=== PATIENT | female | born 1950 | race Caucasian/White ===

== ENCOUNTER 2021-12-05 08:22 | Outpatient (CLI) | payer MEDICARE, SELFPAY ==
[2021-12-05 15:01] LABS: Microalbumin Creatinine Ratio 0 mg/g (0-30); Microalbumin Urine 1 mg/dL
[2021-12-05 15:05] LABS: Amphetamine Screen Urine Negative (Negative); Barbiturate Screen Urine Negative (Negative); Benzodiazepines Screen Urine Negative (Negative); Cannabinoid Screen Urine Negative (Negative); Cocaine Screen Urine Negative (Negative); Methadone Screen Urine Negative (Negative); Methamphetamines Screen Urine Negative (Negative); Opiate Screen Urine Negative (Negative); Oxycodone Screen Urine Negative (Negative); Phencyclidine Screen Urine Negative (Negative); Tricyclic Antidepressant Urine Negative (Negative)
[2021-12-05 15:50] LABS: Chloride* 103 mmol/L (96-114)
[2021-12-05 15:51] LABS: Albumin* 4.2 g/dL (3.3-5.0); Sodium* 140 mmol/L (135-149)
[2021-12-05 15:52] LABS: Potassium* 4.2 mmol/L (3.6-5.1)
[2021-12-05 15:54] LABS: Alanine Aminotransferase* 58 U/L (4-35); Alkaline Phosphatase* 116 U/L (40-150); Aspartate Amino Transferase* 50 U/L (12-35); Bilirubin Total* 0.9 mg/dL (0.1-1.5); Blood Urea Nitrogen* 15 mg/dL (7-30); Carbon Dioxide* 27 mmol/L (20-32); Cholesterol* 187 mg/dL (90-199); Creatinine* 0.8 mg/dL (0.5-1.5); Estimated Glomerular Filt Rate 78 ml/min; Glucose* 163 mg/dL (60-115); Total Protein* 6.4 g/dL (6.0-8.3); Triglycerides* 207 mg/dL (40-149)
[2021-12-05 15:55] LABS: Calcium* 8.6 mg/dL (8.4-10.6); HDL Cholesterol* 33 mg/dL (>=50); LDL Cholesterol Calculated 113 mg/dL (<100)
== END 2021-12-05 08:23 | disposition home or self-care (01) ==
PROVIDERS: PCP Family Medicine; Visit Provider Family Medicine
DX: E11.8 Type 2 diabetes mellitus with unspecified complications (principal); E78.5 Hyperlipidemia, unspecified; I10 Essential (primary) hypertension; N39.0 Urinary tract infection, site not specified; J44.9 Chronic obstructive pulmonary disease, unspecified; J96.21 Acute and chronic respiratory failure with hypoxia; K76.0 Fatty (change of) liver, not elsewhere classified; Z72.0 Tobacco use
CPT/HCPCS: 80053; 80061; 80306; 82043; 82570; 87086

== ENCOUNTER 2022-03-22 07:18 | Emergency (ER) | payer MEDICARE, SELFPAY ==
[2022-03-22] VITALS (8 sets, daily range): BP systolic 115–201; BP diastolic 67–109; PULSE 106–113; RESP 24–28; TEMP 36.7; O2SAT 91–98; BMI 33.4
--- NOTE | 2022-03-22 08:15 | ED.GENADULT ---
HPI - General Adult General Chief complaint: Shortness of Breath/Dyspnea Stated complaint: Shortness of Breath Time Seen by Provider: 03/22/22 08:05 Source: patient Limitations: no limitations History of Present Illness HPI narrative: 71-year-old female coming in today complaining of shortness of breath going on for approximately 4 days. Patient does have a history of coronary artery disease and COPD, unfortunately does continue to smoke approximately 1 and half pack of cigarettes per day. She states that about 4 days ago she became increasingly short of breath and developed a mild cough. She denies any fevers or chills. Her appetite has been poor. She denies any chest pain, nausea, dizziness or diaphoresis. She does have home oxygen which she states she only uses during this spring when her allergies are bad. She has started using her oxygen in the last 4 days 24 hours a day. She also states that she has 1 inhaler that she uses, also only during the spring, and what she describes as a DuoNeb which she only uses on as needed basis. She has been using both of these medications daily for the last few days. She denies any swelling of her extremities. She denies any sick contacts that she is aware of. States that she has been vaccinated for both influenza and COVID-19 this year. Related Data Home Medications Medication Instructions Recorded Confirmed Diabetic Test Strips 10/31/21 03/05/22 albuterol sulfate 90 mcg/actuation 2 inhalation PRN 10/31/21 03/05/22 aerosol inhaler aspirin 81 mg tablet,delayed 81 mg PO QDAY 10/31/21 03/05/22 release (Adult Aspirin Regimen) fluconazole 150 mg tablet mg PO ONCE 10/31/21 03/05/22 fluticasone propionate 250 2 inhalation BID 10/31/21 03/05/22 mcg/actuation blister powder for inhalation furosemide 20 mg tablet mg PO .Daily as needed PRN 10/31/21 03/05/22 ipratropium 0.5 mg-albuterol 3 mg 1 ml inhalation PRN 10/31/21 03/05/22 (2.5 mg base)/3 mL nebulization soln isosorbide mononitrate 60 mg 60 mg PO DAILY 10/31/21 03/05/22 tablet,extended release 24 hr loratadine 10 mg tablet 10 mg PO QDAY 10/31/21 03/05/22 lorazepam 0.5 mg tablet mg PO .Bedtime as needed PRN 10/31/21 03/05/22 metoprolol succinate 50 mg mg PO DAILY 10/31/21 03/05/22 tablet,extended release 24 hr nitroglycerin 0.4 mg sublingual 0.4 mg buccal Q5M PRN 10/31/21 03/05/22 tablet tiotropium bromide 18 mcg capsule 18 inhalation DAILY 10/31/21 03/05/22 with inhalation device triamcinolone acetonide 0.1 % 1 applic topical PRN 10/31/21 03/05/22 topical cream potassium chloride 10 mEq 20 meq PO BID 12/05/21 03/05/22 capsule,extended release Previous Rx's Medication Instructions Recorded montelukast 10 mg tablet 10 mg PO .Bedtime as needed PRN 11/16/21 astma #30 tabs ezetimibe 10 mg tablet 10 mg PO ONCE #30 tabs 12/05/21 semaglutide 0.25 mg or 0.5 mg (2 0.25 mg (0.2 mL) subcut QWEEK #1.5 12/05/21 mg/1.5 mL) subcutaneous pen mL injector (Alitalia) esomeprazole magnesium 20 mg 20 mg PO DAILY #90 caps 02/01/22 capsule,delayed release glimepiride 1 mg tablet 1 mg PO DAILY #90 tabs 02/01/22 prednisone 20 mg tablet 20 mg PO DIRECTED 9 days #18 03/22/22 tabs Allergies Allergy/AdvReac Type Severity Reaction Status Date / Time doxycycline Allergy Intermediate Diarrhea Verified 03/05/22 16:39 glipizide Allergy Intermediate Stomach Verified 03/05/22 16:39 issues fenofibrate Allergy Mild Rash Verified 03/05/22 16:39 metformin Allergy Mild GI issues Verified 03/05/22 16:39 prednisone Allergy Mild Shaking Verified 03/05/22 16:39 adhesive Allergy Unknown Nicotine Verified 03/05/22 16:39 patch-skin irritation azithromycin Allergy Unknown Verified 03/05/22 16:39 cefdinir AdvReac Intermediate Diarrhea Verified 03/05/22 16:39 rosuvastatin AdvReac Intermediate Significant Verified 03/05/22 16:39 dizziness atorvastatin AdvReac Mild Verified 03/05/22 16:39 Corticosteroids and AdvReac Mild Uncoded 03/05/22 16:39 derivatives Review of Systems Status of ROS: Reports: 10 or more systems reviewed and unremarkable except as noted in History and below PFSH PFSH Surgical History History of appendectomy (05/23/12) History of cholecystectomy (07/11/12) History of hysterectomy (05/23/12) Status post coil embolization of cerebral aneurysm Family History Sister Breast cancer Other Diabetes High blood pressure Social History Narrative: Cigarette smoker- smokes 1 ppd Smoking Status: Current every day smoker Exam Narrative: Exam Narrative: Overweight, well-developed patient. Alert and oriented x3. Answers questions appropriately. Mood and affect are appropriate. Thoughts are goal oriented and rational. No tangential or magical thinking noted. Patient cannot complete full sentences without needing to catch her breath. HEENT: Normocephalic atraumatic. Pupils are equally round reactive to light. Extraocular muscles are intact. Conjunctivae are moist without any icterus noted. Dry mucous membranes. Neck is soft. Cardiovascular: Heart is regular rate and rhythm S1 and S2 are present without any murmurs. Lungs: Decreased air movement bilaterally with bilateral wheezing. Abdomen: Soft and nontender nondistended with normal bowel sounds. Protuberant. Extremities: Bilateral lower extremities are without edema. Skin: Well perfused, warm, dry, intact. Const: Vital Signs, click to edit/add: Vital Signs - 24 hr 03/22/22 07:26 Temperature 98.1 F Pulse Rate [Left P ulse Oximeter] 113 H Respiratory Rate 28 H Blood Pressure [Ri ght Upper Arm] 115/81 Pulse Oximetry 91 Oxygen Delivery Me thod Room Air Course Course Hospital Course: IV was established. IV fluids were started. DuoNeb was given along with IV methylprednisolone. Influenza a did come positive-Tamiflu was started. DuoNeb was repeated. Patient felt better however still requiring oxygen at 3 L nasal cannula. Patient complained of stomach upset after the Tamiflu dose was given and requested no more Tamiflu at this time. Respiratory therapy was consulted, felt that given that the patient has home O2 that she could potentially go home on oxygen therapy at this time. I did discuss this with the patient, she is feeling short of breath however did respond well to steroids and DuoNeb. Still requiring 3 L nasal cannula. At this time she is requesting to go home and did not wish to be admitted. Patient was observed in our ER for approximately 6 hours and remained hemodynamically stable. Vital Signs Vital signs: Initial Vital Signs Temperature 98.1 F 03/22/22 07:26 Temperature Source Temporal Artery Scan 03/22/22 07:26 Pulse Rate 113 H 03/22/22 07:26 Respiratory Rate 28 H 03/22/22 07:26 Blood Pressure 115/81 03/22/22 07:26 Blood Pressure Mean 92 03/22/22 07:26 Blood Pressure Position Sitting 03/22/22 07:26 Pulse Oximetry 91 03/22/22 07:26 Oxygen Delivery Method 03/22/22 07:26 Vital Signs Temperature 98.1 F 03/22/22 07:26 Pulse Rate 113 H 03/22/22 07:26 Respiratory Rate 28 H 03/22/22 07:26 Blood Pressure 115/81 03/22/22 07:26 Pulse Oximetry 91 03/22/22 07:26 Oxygen Delivery Method 03/22/22 07:26 Temperature 98.1 F 03/22/22 07:26 Pulse Rate 113 H 03/22/22 07:26 Respiratory Rate 28 H 03/22/22 07:26 Blood Pressure 115/81 03/22/22 07:26 Pulse Oximetry 91 03/22/22 07:26 Oxygen Delivery Method 03/22/22 07:26 Medical Decision Making MDM Narrative Medical decision making narrative: 71-year-old female with influenza a and COPD, hypoxia. Patient will be discharged home on home oxygen at 3 L nasal cannula at all times until she starts to feel better. Will put her on a prednisone taper. Patient states that she gets very shaky when she takes prednisone we discussed that she has this treatment in order for her lungs to recover. She tells me that she will go ahead and start taking as prescribed. She has DuoNebs at home already which she is instructed to take every 4 hours as needed. Medical Records Medical records reviewed: Yes I reviewed the patient's medical records Lab Data Lab results reviewed: Yes I reviewed the patient's lab results Labs: Lab Results 03/22/22 03/22/22 03/22/22 Range/Units 07:36 10:15 10:15 WBC 4.57 (4.50-11.00) K/uL RBC 5.02 (4.00-5.20) m/uL Hgb 14.4 (12.0-16.0) gm/dL Hct 44.5 (33.0-51.0) % MCV 89 (80-100) fL MCH 29 (26-34) pg MCHC 32 (32-36) gm/dL RDW Coeff of Mitchel 14.3 (11.5-15.5) % Plt Count 58 L (140-440) K/uL Neut % (Auto) 87.4 H (42.0-72.0) % Lymph % (Auto) 5.5 L (20-44) % Barnwell % (Auto) 6.3 (0.0-11.0) % Eos % (Auto) 0.2 (0.0-7.0) % Baso % (Auto) 0.2 (0.0-3.0) % Neut # (Auto) 4.00 (1.7-7.0) K/uL Lymph # (Auto) 0.30 L (0.90-2.90) K/uL Barnwell # (Auto) 0.30 (0.00-0.90) K/UL Eos # (Auto) 0.01 (0.00-0.50) K/uL Baso # (Auto) 0.01 (0.00-0.30) K/uL Sodium 139 (135-149) mmol/L Lactate (0.5-1.9) mmol/L SARS-CoV-2 (PCR) Negative SARS-CoV-2 (Negative) Influenza Type A (PCR) POSITIVE PCR FLU A A (Negative) Influenza Type B (PCR) Negative PCR FLU B (Negative) RSV (PCR) Negative PCR RSV (Negative) 03/22/22 Range/Units 10:15 WBC (4.50-11.00) K/uL RBC (4.00-5.20) m/uL Hgb (12.0-16.0) gm/dL Hct (33.0-51.0) % MCV (80-100) fL MCH (26-34) pg MCHC (32-36) gm/dL RDW Coeff of Mitchel (11.5-15.5) % Plt Count (140-440) K/uL Neut % (Auto) (42.0-72.0) % Lymph % (Auto) (20-44) % Barnwell % (Auto) (0.0-11.0) % Eos % (Auto) (0.0-7.0) % Baso % (Auto) (0.0-3.0) % Neut # (Auto) (1.7-7.0) K/uL Lymph # (Auto) (0.90-2.90) K/uL Barnwell # (Auto) (0.00-0.90) K/UL Eos # (Auto) (0.00-0.50) K/uL Baso # (Auto) (0.00-0.30) K/uL Sodium (135-149) mmol/L Lactate 1.0 (0.5-1.9) mmol/L SARS-CoV-2 (PCR) (Negative) Influenza Type A (PCR) (Negative) Influenza Type B (PCR) (Negative) RSV (PCR) (Negative) Imaging Data Chest x-ray: Attestation: I have reviewed the pertinent imaging results. Radiologist's impression: Chest 1 view. Comparison: 12/05/2021. Findings/Impression: Cardiovascular and mediastinum: Heart size and vasculature are normal in caliber and appearance. Lungs and pleural space: Prominence of the central lung interstitium is new and nonspecific. This could represent edema or an infectious or inflammatory process. Remainder of the lungs and pleural spaces are clear. No pneumothorax. Bones and soft tissues: No acute findings. ECG Data Attestation: I personally reviewed and interpreted this ECG as follows: (Sinus tachycardia, pulse 106 on right bundle-branch block.) Discharge Plan Discharge Clinical Impression: Influenza A, Hypoxia, COPD exacerbation Patient Disposition: Home, Self-Care Condition: Stable Additional Instructions: Take steroids as prescribed. Okay to use your DuoNebs every 4 hours throughout the day. Return to the ER if breathing is getting worse. The steroids may affect your blood sugars- check them once or twice throughout the day. Remember, you are contagious. Prescriptions: New prednisone 20 mg tablet 20 mg PO DIRECTED 9 Days Qty: 18 0RF Rx Instructions: 60 mg p.o. daily for 3 days (3 tablets daily on day 1-3), 40 mg daily for 3 days (2 tablets daily on days 4-6), 20 mg daily for 3 days (1 tablet daily on days 7-9). No Action potassium chloride 10 mEq capsule, extended release 20 meq PO BID Ozempic 0.25 mg or 0.5 mg(2 mg/1.5 mL) pen injector 0.25 mg subcut QWEEK Qty: 1.5 0RF Rx Instructions: for 4 doses ezetimibe 10 mg tablet 10 mg PO ONCE Qty: 30 3RF furosemide 20 mg tablet PO .Daily as needed PRN loratadine 10 mg tablet 10 mg PO QDAY aspirin [Adult Aspirin Regimen] 81 mg tablet,delayed release (DR/EC) 81 mg PO QDAY fluconazole 150 mg tablet PO ONCE fluticasone propionate 250 mcg/actuation blister with device 2 inhalation BID albuterol sulfate 90 mcg/actuation HFA aerosol inhaler 2 inhalation PRN nitroglycerin 0.4 mg tablet, sublingual 0.4 mg buccal Q5M PRN isosorbide mononitrate 60 mg tablet extended release 24 hr 60 mg PO DAILY metoprolol succinate 50 mg tablet extended release 24 hr PO DAILY ipratropium-albuterol 0.5 mg-3 mg(2.5 mg base)/3 mL solution for nebulization 1 ml inhalation PRN triamcinolone acetonide 0.1 % cream 1 applic topical PRN Rx Instructions: Apply thin layer to pruritic skin twice daily as needed. lorazepam 0.5 mg tablet PO .Bedtime as needed PRN (DME) Diabetic Test Strips Misc See Rx Instructions .Route Rx Instructions: As directed tiotropium bromide 18 mcg capsule, w/inhalation device 18 inhalation DAILY esomeprazole magnesium 20 mg capsule,delayed release(DR/EC) 20 mg PO DAILY Qty: 90 3RF glimepiride 1 mg tablet 1 mg PO DAILY Qty: 90 1RF montelukast 10 mg tablet 10 mg PO .Bedtime as needed PRN (Reason: astma) Qty: 30 0RF Follow Up/Referrals: Tory Reid DO [Primary Care Provider] - Stand Alone Forms: [facility] Info Instructions
--- NOTE | 2022-03-22 08:18 | CRLHL7_ITS ---
For Patients: As a result of the Century Cures Act, medical imaging exams and procedure reports are released immediately into your electronic medical record. You may view this report before your referring provider. If you have questions, please contact your health care provider. Indication: Shortness of breath. Technique: Chest 1 view. Comparison: 12/05/2021. Findings/Impression: Cardiovascular and mediastinum: Heart size and vasculature are normal in caliber and appearance. Lungs and pleural space: Prominence of the central lung interstitium is new and nonspecific. This could represent edema or an infectious or inflammatory process. Remainder of the lungs and pleural spaces are clear. No pneumothorax. Bones and soft tissues: No acute findings. Dictated by Madhu Kearns MD @ 03/22/2022 8:58:39 AM (Electronically Signed)
[2022-03-22 08:21] LABS: PCR FLU A POSITIVE PCR FLU A (Negative); PCR FLU B Negative PCR FLU B (Negative); PCR RSV Negative PCR RSV (Negative)
[2022-03-22 08:35] LABS: SARS PCR* Negative SARS-CoV-2 (Negative)
[2022-03-22] MEDS: 0.9 % SODIUM CHLORIDE 1000 ml 1,000 ML 500 ML IV (09:04)
[2022-03-22] MEDS: METHYLPREDNISOLONE SOD SUCC 62.5 MG/ML (125) 125 MG IVP (09:04)
[2022-03-22] MEDS: IPRAT-ALBUT 0.5-2.5 MG/3 ML NEB 1 NEB IH (09:04)
[2022-03-22] MEDS: OSELTAMIVIR PHOSPHATE 75 MG CAPSULE PO (09:05)
--- NOTE | 2022-03-22 09:49 | PC.NURSE ---
pt to bathroom with wheelchair and standby assist
[2022-03-22 10:33] LABS: Basophils Absolute Auto 0.01 K/uL (0.00-0.30); Basophils Percent Auto 0.2 % (0.0-3.0); Eosinophils Absolute Auto 0.01 K/uL (0.00-0.50); Eosinophils Percent Auto 0.2 % (0.0-7.0); Hematocrit 44.5 % (33.0-51.0); Hemoglobin* 14.4 gm/dL (12.0-16.0); Immature Granulocytes Abs Auto 0.02 K/uL (0.00-0.30); Immature Granulocytes Pct Auto 0.4 %; Lymphocytes Percent Auto 5.5 % (20-44); Mean Corpuscular HGB Conc 32 gm/dL (32-36); Mean Corpuscular Hemoglobin 29 pg (26-34); Mean Corpuscular Volume 89 fL (80-100); Monocytes Percent Auto 6.3 % (0.0-11.0); Neutrophils Percent Auto 87.4 % (42.0-72.0); Platelet Count* 58 K/uL (140-440); RDW Coefficient of Variation % 14.3 % (11.5-15.5); Red Blood Count 5.02 m/uL (4.00-5.20); White Blood Count* 4.57 K/uL (4.50-11.00)
[2022-03-22 10:39] LABS: Sodium* 139 mmol/L (135-149)
[2022-03-22 10:45] LABS: Slide Review Reflex No
--- NOTE | 2022-03-22 11:12 | ED.NURSE ---
patient is sob and feeling nauseated offered some meds and refused at this time. wants to wait. offered a neb and refused
--- NOTE | 2022-03-22 12:14 | PC.NURSE ---
patient's daughter called back and is aware of patient being in the ED. Daughter plans to come in to see patient.
[2022-03-22 13:37] LABS: Chloride* 104 mmol/L (96-114); Potassium* 3.9 mmol/L (3.6-5.1)
[2022-03-22 13:40] LABS: Carbon Dioxide* 26 mmol/L (20-32); Creatinine* 0.6 mg/dL (0.5-1.5); Est. Creatinine Clearance* 49.45; Estimated Glomerular Filt Rate 95 ml/min
[2022-03-22 13:41] LABS: Blood Urea Nitrogen* 10 mg/dL (7-30); Glucose* 181 mg/dL (60-115)
[2022-03-22 13:43] LABS: C Reactive Protein* 7.9 mg/dL (0.5-1.0)
[2022-03-22 13:58] LABS: Troponin I* < 0.01 ng/mL (0.01-0.04)
== END 2022-03-22 14:35 | disposition home or self-care (01) ==
PROVIDERS: Emergency Provider Family Medicine; PCP Family Medicine
DX: J44.1 Chronic obstructive pulmonary disease with (acute) exacerbation (principal); J09.X2 Influenza due to identified novel influenza A virus with other respiratory manifestations
CPT/HCPCS: 36415; 71045; 80048; 83605; 84484; 85025; 86140; 87502; 87634; 87635; 94640; 96374; 99284; 99285; A9270; J2930; J7030

== ENCOUNTER 2023-02-09 12:36 | Outpatient (CLI) | payer MEDICARE, SELFPAY | END 2023-02-09 12:37 | disposition home or self-care (01) | LOC: NFLDREF 02-15 09:55 | PROVIDERS: Visit Provider Nurse Practitioner Family | DX: R30.0 Dysuria (principal); N89.8 Other specified noninflammatory disorders of vagina; L30.4 Erythema intertrigo; N30.00 Acute cystitis without hematuria; L29.9 Pruritus, unspecified | CPT/HCPCS: 87086; 87186 ==

== ENCOUNTER 2023-06-18 18:20 | Emergency (ER) | payer MEDICARE, SELFPAY ==
[2023-06-18] VITALS (10 sets, daily range): BP systolic 127–141; BP diastolic 59–68; PULSE 80–85; RESP 20–32; TEMP 36; O2SAT 89–92; BMI 33.4
--- NOTE | 2023-06-18 18:40 | ED_ITS ---
HPI - General Adult General Time Seen by Provider: 18:40 Date Seen: 06/18/23 Chief complaint: Cough Stated complaint: Cough Time Seen by Provider: 06/18/23 18:21 Source: patient and RN notes reviewed Mode of arrival: ambulatory Limitations: no limitations History of Present Illness HPI narrative: This 72-year-old female accompanied by her daughter into the ER for concern of COPD and possible respiratory infection. She admits she really has not felt well for couple weeks, has been having night sweats. She has woken up and has sweat it through her clothing. She has not documented any fever but does not have a thermometer. She has underlying COPD, has been using DuoNebs. She states she cannot tolerate any prednisone or steroids, they states she turns red as a beet, they states she does not tolerate them. She has oxygen at home but has not been using it for some time, typically would be on 3 L per report. She does continue to smoke. Her daughter had influenza a awhile ago and she was exposed. She is coughing up yellow phlegm. Her daughter does suspect she probably has had temperatures as she called her to get a thermometer this week. She has had congestion. She denies any chest pain but does admit to feeling increased shortness of breath. She is overall felt weak and had diminished appetite. Her daughter is adamant that she cannot have prednisone. I do see that she is on fluticasone inhaler and Spiriva. Related Data Home Medications Medication Instructions Recorded Confirmed Diabetic Test Strips 10/31/21 03/05/22 albuterol sulfate 90 mcg/actuation 2 inhalation PRN 10/31/21 03/05/22 aerosol inhaler fluconazole 150 mg tablet mg PO ONCE 10/31/21 03/05/22 fluticasone propionate 250 2 inhalation BID 10/31/21 03/05/22 mcg/actuation blister powder for inhalation furosemide 20 mg tablet mg PO .Daily as needed PRN 10/31/21 03/05/22 ipratropium 0.5 mg-albuterol 3 mg 1 ml inhalation PRN 10/31/21 03/05/22 (2.5 mg base)/3 mL nebulization soln loratadine 10 mg tablet 10 mg PO QDAY 10/31/21 03/05/22 lorazepam 0.5 mg tablet mg PO .Bedtime as needed PRN 10/31/21 03/05/22 nitroglycerin 0.4 mg sublingual 0.4 mg buccal Q5M PRN 10/31/21 03/05/22 tablet tiotropium bromide 18 mcg capsule 18 inhalation DAILY 10/31/21 03/05/22 with inhalation device triamcinolone acetonide 0.1 % 1 applic topical PRN 10/31/21 03/05/22 topical cream potassium chloride 10 mEq 20 meq PO BID 12/05/21 03/05/22 capsule,extended release Previous Rx's Medication Instructions Recorded montelukast 10 mg tablet 10 mg PO .Bedtime as needed PRN 11/16/21 astma #30 tabs semaglutide 0.25 mg or 0.5 mg (2 0.25 mg (0.2 mL) subcut QWEEK #1.5 12/05/21 mg/1.5 mL) subcutaneous pen mL injector ([employer]) esomeprazole magnesium 20 mg 20 mg PO DAILY #90 caps 02/01/22 capsule,delayed release prednisone 20 mg tablet 20 mg PO DIRECTED 9 days #18 03/22/22 tabs glimepiride 1 mg tablet 1 mg PO DAILY #30 tabs 08/27/22 hydroxyzine HCl 25 mg tablet 25 - 50 mg (1 - 2 x 25 mg) PO 3XD 08/27/22 PRN for itch #60 tabs ezetimibe 10 mg tablet 10 mg PO DAILY #90 tabs 10/19/22 isosorbide mononitrate 60 mg 60 mg PO DAILY #90 tabs 11/12/22 tablet,extended release 24 hr metoprolol succinate 50 mg 50 mg PO DAILY #30 tabs 11/12/22 tablet,extended release 24 hr nystatin 100,000 unit/gram topical 1 applic topical BID #15 grams 02/09/23 ointment pramoxine 1 % lotion (Sarna 1 applic topical BID #237 mL 02/13/23 Sensitive) Allergies Allergy/AdvReac Type Severity Reaction Status Date / Time doxycycline Allergy Intermediate Diarrhea Verified 02/09/23 13:34 glipizide Allergy Intermediate Stomach Verified 02/09/23 13:34 issues fenofibrate Allergy Mild Rash Verified 02/09/23 13:34 metformin Allergy Mild GI issues Verified 02/09/23 13:34 prednisone Allergy Mild Shaking Verified 02/09/23 13:34 adhesive Allergy Unknown Nicotine Verified 02/09/23 13:34 patch-skin irritation azithromycin Allergy Unknown Verified 02/09/23 13:34 cefdinir AdvReac Intermediate Diarrhea Verified 02/09/23 13:34 rosuvastatin AdvReac Intermediate Significant Verified 02/09/23 13:34 dizziness atorvastatin AdvReac Mild Verified 02/09/23 13:34 Corticosteroids and AdvReac Mild Uncoded 02/09/23 13:34 derivatives Review of Systems Status of ROS: Reports: 6 or more systems reviewed and unremarkable except as noted in History and below PFSH PFS Surgical History Status post coil embolization of cerebral aneurysm ?Z98.890 - Other specified postprocedural states (ICD-10) History of hysterectomy (05/23/12) ?Z90.710 - Acquired absence of both cervix and uterus (ICD-10) History of cholecystectomy (07/11/12) ?Z90.49 - Acquired absence of other specified parts of digestive tract (ICD-10) History of appendectomy (05/23/12) ?Z90.49 - Acquired absence of other specified parts of digestive tract (ICD- 10) Family History Sister Breast cancer Other Diabetes High blood pressure Social History Narrative: Cigarette smoker- smokes 1 ppd Smoking Status: Current every day smoker What tobacco products do you use: cigarettes Years smoked: 58 How often do you have a drink containing alcohol: never AUDIT-C Alcohol total score: 0 Non-prescribed substance use: denies use service: No Exam Const: Vital Signs, click to edit/add: Vital Signs - 24 hr 06/18/23 18:25 06/18/23 18:38 06/18/23 18:45 Temperature 96.8 F L Pulse Rate 85 84 Pulse Rate [Pulse Oximeter] 83 Respiratory Rate 32 H Blood Pressure Blood Pressure [Ri ght Upper Arm] 141/68 H Pulse Oximetry 92 90 90 Oxygen Delivery Me thod Room Air 06/18/23 18:58 06/18/23 19:00 06/18/23 19:02 Temperature Pulse Rate 84 84 Pulse Rate [Pulse Oximeter] Respiratory Rate Blood Pressure 127/59 L Blood Pressure [Ri ght Upper Arm] Pulse Oximetry 91 90 90 Oxygen Delivery Me thod 72-year-old female who smells of cigaret te smoke is ambulatory into the ED of her own accord. She is alert, interactive, no apparent distress. She is speaking in complete sentences, no tachypnea at rest. Sclera clear, conjugate gaze. Symmetrical facial function. Neck is supple, no adenopathy. Skin does feel warm, she is mildly diaphoretic. No rash on skin. Lungs with some rhonchi, some end expiratory wheezing heard, no crackles. Heart sounds are distant but hear no murmur, normal S1-S2. Abdomen has a nontender umbilical hernia abdomen overall is soft without any organomegaly, feel no other masses. She has no lower extremity edema. Documenting provider has reviewed patient's vital signs: yes Course Course ED Course: This is a COPD patient with at least COPD exacerbation, rule out underlying infectious etiologies such as pneumonia. She may need antibiotics, has multiple allergies. Will have to review her labs, see her portable chest x-ray. When I was in with her, she had some brief dips into the upper 80s such as 88-89% and then would trend back up into the low 90s. She does have oxygen at home. Does not sound like she tolerates any steroids. Reevaluation(s) Time of Reevaluation #1: 19:43 Reevaluation #1: Have reviewed labs, chest x-ray is not showing any pneumonia. We will still cover her with antibiotics given her presentation and history. We did review the triple negative viral swab, does not mean that she did not have 1 of these viral entities at the beginning of her illness. Daughter is requesting amoxicillin. Given the multitude of intolerances this patient has, will get this for them from [facility]. Other antibiotics may be a 1st choice consideration over this but given the intolerance is, will do his they request. She will not take steroids due to reported intolerance. We did review need for oxygen, would anticipate she specifically may need this more than she is using at home right now. We also reviewed smoking cessation. Vital Signs Vital signs: Initial Vital Signs Temperature 96.8 F L 06/18/23 18:25 Temperature Source Temporal Artery Scan 06/18/23 18:25 Pulse Rate 83 06/18/23 18:25 Respiratory Rate 32 H 06/18/23 18:25 Blood Pressure 141/68 H 06/18/23 18:25 Blood Pressure Mean 92 06/18/23 18:25 Blood Pressure Position Supine 06/18/23 18:25 Pulse Oximetry 92 06/18/23 18:25 Oxygen Delivery Method Room Air 06/18/23 18:25 Vital Signs Temperature 96.8 F L 06/18/23 18:25 Pulse Rate 83 06/18/23 18:25 Respiratory Rate 32 H 06/18/23 18:25 Blood Pressure 141/68 H 06/18/23 18:25 Pulse Oximetry 92 06/18/23 18:25 Oxygen Delivery Method Room Air 06/18/23 18:25 Temperature 96.8 F L 06/18/23 18:25 Pulse Rate 84 06/18/23 19:02 Respiratory Rate 32 H 06/18/23 18:25 Blood Pressure 127/59 L 06/18/23 19:02 Pulse Oximetry 90 06/18/23 19:02 Oxygen Delivery Method Room Air 06/18/23 18:25 Medical Decision Making Lab Data Labs: Lab Results 06/18/23 06/18/23 06/18/23 Range/Units 18:41 18:52 18:53 WBC (4.50-11.00) K/uL RBC (4.00-5.20) m/uL Hgb (12.0-16.0) gm/dL Hct (33.0-51.0) % MCV (80-100) fL MCH (26-34) pg MCHC (32-36) gm/dL RDW Coeff of Mitchel (11.5-15.5) % Plt Count (140-440) K/uL Neut % (Auto) (42.0-72.0) % Lymph % (Auto) (20-44) % [place] % (Auto) (0.0-11.0) % Eos % (Auto) (0.0-7.0) % Baso % (Auto) (0.0-3.0) % Neut # (Auto) (1.7-7.0) K/uL Lymph # (Auto) (0.90-2.90) K/uL [place] # (Auto) (0.00-0.90) K/UL Eos # (Auto) (0.00-0.50) K/uL Baso # (Auto) (0.00-0.30) K/uL Abs Immat Gran (auto) (0.00-0.30) K/uL Imm/Tot Granulo (auto) % VBG pH 7.444 H (7.32-7.43) VBG pCO2 41 (40-50) mmHG VBG pO2 51.3 H (25-47) mmHG VBG HCO3 28 (21-28) mmol/L Sodium 133 L (135-149) mmol/L Potassium 3.7 (3.6-5.1) mmol/L Chloride 99 (96-114) mmol/L Carbon Dioxide 28 (20-32) mmol/L Anion Gap 6 L (7-15) mEq/L BUN 13 (7-30) mg/dL Creatinine 0.7 (0.5-1.5) mg/dL Estimated Creat Clear 48.72 Estimated GFR 91 ml/min Glucose 325 H (60-115) mg/dL Lactate 1.1 (0.5-1.9) mmol/L Calcium 8.7 (8.4-10.6) mg/dL Total Bilirubin 1.1 (0.1-1.5) mg/dL AST 80 H (12-35) U/L ALT 66 H (4-35) U/L Alkaline Phosphatase 109 (40-150) U/L C-Reactive Protein 4.2 H (0.5-1.0) mg/dL NT-Pro-B Natriuret Pep 456 pg/mL Total Protein 6.6 (6.0-8.3) g/dL Albumin 3.9 (3.3-5.0) g/dL SARS-CoV-2 (PCR) Negative SARS-CoV-2 (Negative) Influenza Type A (PCR) Negative PCR FLU A (Negative) Influenza Type B (PCR) Negative PCR FLU B (Negative) RSV (PCR) Negative PCR RSV (Negative) 06/18/23 Range/Units 18:55 WBC 7.75 (4.50-11.00) K/uL RBC 5.36 H (4.00-5.20) m/uL Hgb 15.4 (12.0-16.0) gm/dL Hct 46.5 (33.0-51.0) % MCV 87 (80-100) fL MCH 29 (26-34) pg MCHC 33 (32-36) gm/dL RDW Coeff of Mitchel 13.2 (11.5-15.5) % Plt Count 88 L (140-440) K/uL Neut % (Auto) 83.9 H (42.0-72.0) % Lymph % (Auto) 7.2 L (20-44) % [place] % (Auto) 8.6 (0.0-11.0) % Eos % (Auto) 0.1 (0.0-7.0) % Baso % (Auto) 0.1 (0.0-3.0) % Neut # (Auto) 6.50 (1.7-7.0) K/uL Lymph # (Auto) 0.60 L (0.90-2.90) K/uL [place] # (Auto) 0.70 (0.00-0.90) K/UL Eos # (Auto) 0.01 (0.00-0.50) K/uL Baso # (Auto) 0.01 (0.00-0.30) K/uL Abs Immat Gran (auto) 0.01 (0.00-0.30) K/uL Imm/Tot Granulo (auto) 0.1 % VBG pH (7.32-7.43) VBG pCO2 (40-50) mmHG VBG pO2 (25-47) mmHG VBG HCO3 (21-28) mmol/L Sodium (135-149) mmol/L Potassium (3.6-5.1) mmol/L Chloride (96-114) mmol/L Carbon Dioxide (20-32) mmol/L Anion Gap (7-15) mEq/L BUN (7-30) mg/dL Creatinine (0.5-1.5) mg/dL Estimated Creat Clear Estimated GFR ml/min Glucose (60-115) mg/dL Lactate (0.5-1.9) mmol/L Calcium (8.4-10.6) mg/dL Total Bilirubin (0.1-1.5) mg/dL AST (12-35) U/L ALT (4-35) U/L Alkaline Phosphatase (40-150) U/L C-Reactive Protein (0.5-1.0) mg/dL NT-Pro-B Natriuret Pep pg/mL Total Protein (6.0-8.3) g/dL Albumin (3.3-5.0) g/dL SARS-CoV-2 (PCR) (Negative) Influenza Type A (PCR) (Negative) Influenza Type B (PCR) (Negative) RSV (PCR) (Negative) Imaging Data Chest x-ray: Attestation: I have reviewed the pertinent imaging results. Radiologist's impression: Patient: FEMI CARR Facility:?[facility] Patient ID:?[id number] Site Patient ID:?[id number]. Site :?[id number] Study:?XRay Chest PCXR-06/18/2023 7:23:15 PM Ordering Physician:MACO Final Report: INDICATION: Cough. Fever. COPD. COMPARISON: To 03/22/2022. TECHNIQUE: Coronal view of the chest. FINDINGS: No pleural effusions. No pneumothorax. Stable prominent interstitial markings in the parahilar regions which may be secondary to pulmonary vascular congestion. Normal cardiomediastinal silhouette. Dictated by Blane Stewart MD @ 06/18/2023 7:32:42 PM (Electronic Signature) ECG Data Attestation: I personally reviewed and interpreted this ECG as follows: (Sinus rhythm, 86 beats per minute. Right bundle branch block. Definite artifact noted. Inferior and anterolateral changes unchanged from 2021.) Prior ECG tracings: available for review Discharge Plan Discharge Clinical Impression: Acute exacerbation of chronic obstructive pulmonary disease Patient Disposition: Home, Self-Care Condition: Stable Instructions: COPD (Chronic Obstructive Pulmonary Disease) (ED) Additional Instructions: Use your oxygen at home, start amoxicillin and take as prescribed, 500 mg 3 times a day for 10 days. Continue with your inhalers and nebulizations that use baseline at home. If you are not improving, feel that your worsening at any point, please seek re-evaluation. We always recommend consideration of smoking cessation. Activity Level: Activity as Tolerated Prescriptions: No Action potassium chloride 10 mEq capsule, extended release 20 meq PO BID Ozempic 0.25 mg or 0.5 mg(2 mg/1.5 mL) pen injector 0.25 mg subcut QWEEK Qty: 1.5 0RF Rx Instructions: for 4 doses furosemide 20 mg tablet PO .Daily as needed PRN loratadine 10 mg tablet 10 mg PO QDAY fluconazole 150 mg tablet PO ONCE fluticasone propionate 250 mcg/actuation blister with device 2 inhalation BID albuterol sulfate 90 mcg/actuation HFA aerosol inhaler 2 inhalation PRN nitroglycerin 0.4 mg tablet, sublingual 0.4 mg buccal Q5M PRN ipratropium-albuterol 0.5 mg-3 mg(2.5 mg base)/3 mL solution for nebulization 1 ml inhalation PRN triamcinolone acetonide 0.1 % cream 1 applic topical PRN Rx Instructions: Apply thin layer to pruritic skin twice daily as needed. lorazepam 0.5 mg tablet PO .Bedtime as needed PRN (DME) Diabetic Test Strips Misc See Rx Instructions .Route Rx Instructions: As directed tiotropium bromide 18 mcg capsule, w/inhalation device 18 inhalation DAILY esomeprazole magnesium 20 mg capsule,delayed release(DR/EC) 20 mg PO DAILY Qty: 90 3RF nystatin 100,000 unit/gram ointment 1 applic topical BID Qty: 15 0RF pramoxine [Sarna Sensitive] 1 % lotion 1 applic topical BID Qty: 237 0RF prednisone 20 mg tablet 20 mg PO DIRECTED 9 Days Qty: 18 0RF Rx Instructions: 60 mg p.o. daily for 3 days (3 tablets daily on day 1-3), 40 mg daily for 3 days (2 tablets daily on days 4-6), 20 mg daily for 3 days (1 tablet daily on da ys 7-9). montelukast 10 mg tablet 10 mg PO .Bedtime as needed PRN (Reason: astma) Qty: 30 0RF glimepiride 1 mg tablet 1 mg PO DAILY Qty: 30 0RF hydroxyzine HCl 25 mg tablet 25 - 50 mg PO 3XD PRN (Reason: for itch) Qty: 60 0RF ezetimibe 10 mg tablet 10 mg PO DAILY Qty: 90 3RF isosorbide mononitrate 60 mg tablet extended release 24 hr 60 mg PO DAILY Qty: 90 0RF metoprolol succinate 50 mg tablet extended release 24 hr 50 mg PO DAILY Qty: 30 0RF Follow Up/Referrals: Provider,Not a Local [Primary Care Provider] - Stand Alone Forms: [employer] Info Instructions
--- NOTE | 2023-06-18 18:52 | XR_ITS ---
Patient: FEMI CARR Facility:?[facility] Patient ID:?[id number] Site Patient ID:?[id number]. Site :?[id number] Study:?XRay-Chest PCXR-06/18/2023 7:23:15 PM Ordering Physician:MACO Final Report: INDICATION: Cough. Fever. COPD. COMPARISON: To 03/22/2022. TECHNIQUE: Coronal view of the chest. FINDINGS: No pleural effusions. No pneumothorax. Stable prominent interstitial markings in the parahilar regions which may be secondary to pulmonary vascular congestion. Normal cardiomediastinal silhouette. Dictated by Blane Stewart MD @ 06/18/2023 7:32:42 PM Signed by:?Blane Stewart MD @06/18/2023 7:32:42 PM (Electronic Signature)
[2023-06-18 19:03] LABS: HCO3 VBG 28 mmol/L (21-28); PCO2 VBG 41 mmHG (40-50); PO2 VBG 51.3 mmHG (25-47); pH VBG 7.444 (7.32-7.43)
[2023-06-18 19:04] LABS: Lactate* 1.1 mmol/L (0.5-1.9)
[2023-06-18 19:05] LABS: Basophils Absolute Auto 0.01 K/uL (0.00-0.30); Basophils Percent Auto 0.1 % (0.0-3.0); Eosinophils Absolute Auto 0.01 K/uL (0.00-0.50); Eosinophils Percent Auto 0.1 % (0.0-7.0); Hematocrit 46.5 % (33.0-51.0); Hemoglobin* 15.4 gm/dL (12.0-16.0); Immature Granulocytes Abs Auto 0.01 K/uL (0.00-0.30); Immature Granulocytes Pct Auto 0.1 %; Lymphocytes Percent Auto 7.2 % (20-44); Mean Corpuscular HGB Conc 33 gm/dL (32-36); Mean Corpuscular Hemoglobin 29 pg (26-34); Mean Corpuscular Volume 87 fL (80-100); Monocytes Percent Auto 8.6 % (0.0-11.0); Neutrophils Percent Auto 83.9 % (42.0-72.0); Platelet Count* 88 K/uL (140-440); RDW Coefficient of Variation % 13.2 % (11.5-15.5); Red Blood Count 5.36 m/uL (4.00-5.20); White Blood Count* 7.75 K/uL (4.50-11.00)
[2023-06-18 19:07] LABS: Slide Review Reflex No
[2023-06-18 19:18] LABS: Albumin* 3.9 g/dL (3.3-5.0); Chloride* 99 mmol/L (96-114)
[2023-06-18 19:19] LABS: Potassium* 3.7 mmol/L (3.6-5.1); Sodium* 133 mmol/L (135-149)
[2023-06-18 19:21] LABS: Bilirubin Total* 1.1 mg/dL (0.1-1.5); Creatinine* 0.7 mg/dL (0.5-1.5); Est. Creatinine Clearance* 48.72; Estimated Glomerular Filt Rate 91 ml/min
[2023-06-18 19:22] LABS: Alanine Aminotransferase* 66 U/L (4-35); Alkaline Phosphatase* 109 U/L (40-150); Anion Gap 6 mEq/L (7-15); Aspartate Amino Transferase* 80 U/L (12-35); Blood Urea Nitrogen* 13 mg/dL (7-30); Calcium* 8.7 mg/dL (8.4-10.6); Carbon Dioxide* 28 mmol/L (20-32); Glucose* 325 mg/dL (60-115); Total Protein* 6.6 g/dL (6.0-8.3)
[2023-06-18 19:25] LABS: C Reactive Protein* 4.2 mg/dL (0.5-1.0)
[2023-06-18 19:26] LABS: PCR FLU A Negative PCR FLU A (Negative); PCR FLU B Negative PCR FLU B (Negative); PCR RSV Negative PCR RSV (Negative); SARS PCR* Negative SARS-CoV-2 (Negative)
[2023-06-18 19:35] LABS: NT Pro B Type NatriureticPept* 456 pg/mL
== END 2023-06-18 19:53 | disposition home or self-care (01) ==
PROVIDERS: Emergency Provider Family Medicine
DX: J44.1 Chronic obstructive pulmonary disease with (acute) exacerbation (principal)
CPT/HCPCS: 36415; 71045; 80053; 82803; 83605; 83880; 84484; 85025; 86140; 87631; 93005; 94761; 99284; 99285